=== PATIENT | female | born 1975 | race Caucasian/White ===

== ENCOUNTER → 2019-12-14 | Outpatient (CLI) | payer OTHER | LOC: WI 11:13 | PROVIDERS: ATTEND Family Medicine | DX: Z12.31 Encounter for screening mammogram for malignant neoplasm of breast (principal) | CPT/HCPCS: 77067 ==

== ENCOUNTER → 2020-01-10 | Outpatient (CLI) | payer OTHER ==
--- NOTE | 2020-01-10 16:59 | WOMENS IMAGING REPORT ---
EXAM DESCRIPTION: BILAT DIAGNOSTIC MAMMO W/CAD; U/S BREAST UNILAT LIMITED COMPLETED DATE/TIME: 01/10/2020 12:25 pm; 01/10/2020 2:12 pm REASON FOR STUDY: R92.8 BILATERAL DIAGNOSTIC MAMMOGRAM; LT BREAST R92.2 INCONCLUSIVE MAMMOGRAM. Ca llback from screening mammogram for asymmetry right breast and a small mass in the left breast. COMPARISON: Screening mammogram 12/14/2019. EXAM PARAMETERS: Standard craniocaudal and mediolateral oblique views of each breast recorded using digital acquisition. Spot-compression images of both the right and left breast in CC and MLO views were obtained. Read with the assistance of CAD: .[employer] Version 9.2 LIMITATIONS: None. FINDINGS: RIGHT BREAST MASSES: No suspicious masses. CALCIFICATIONS: No new or suspicious calcifications. ARCHITECTURAL DISTORTION: None. ASYMMETRY: With repeat imaging and spot compression the previously described asymmetry is no longer v isible. This is consistent with benign superimposed breast tissue. OTHER: No other significant findings. LEFT BREAST MASSES: The small mass measuring approximately 9 mm in the left upper outer breast persists with spot compression. CALCIFICATIONS: No new or suspicious calcifications. ARCHITECTURAL DISTORTION: None. ASYMMETRY: None noted. OTHER: No other significant finding. The patient was taken ultrasound for further evaluation of the left breast. The left breast was scan marilu from the 1 to 2 o'clock position September 2012 cm from the nipple. There is a benign intramammar y lymph node measuring 1.2 x 0.9 x 0.6 cm. This has normal architecture, normal fatty hilum, and nor mal vascularity. There is no other mass, area of echogenic shadowing, skin thickening, or other abno rmality in the upper outer left breast. IMPRESSION: 1. Benign superimposed breast tissue in the right breast. 2. Benign intramammary lymph node in the left breast. 3. No mammographic or sonographic evidence of malignancy. Recommend annual routine screening mammogr aphy for which the patient will be due in November 2020. BREAST DENSITY: b. There are scattered areas of fibroglandular density. BIRAD: ASSESSMENT: 2 Benign findings. RECOMMENDATION: RECOMMENDED FOLLOW UP: Birads 1 or 2: The patient should resume routine screening . SPECIFIC INTERVENTION/IMAGING/CONSULTATION RECOMMENDED:No additional intervention/ imaging/consultati on needed at this time. COMMUNICATION:The imaging findings were not discussed with the patient. Her referring provider has be en notified of the findings. COMMENT: The patient has been notified of the results by letter per [place] requirements. Additional no tification policies are in place for contacting patient with suspicious or incomplete findings. Quality ID #[id number]: The [employer] recommends an annual screening mammogram for women aged 40 years or over. This facility utilizes a reminder system to ensure that all patients receive reminder letters, and/or direct phone calls for appointments. This includes reminders for routine scr eening mammograms, diagnostic mammograms, or other Breast Imaging Interventions when appropriate. Th is patient will be placed in the appropriate reminder system. TECHNICAL DOCUMENTATION: FINDING NUMBER: (1) ASSESSMENT: (1) JOB ID: [id number] 2010 [email or web address]- All Rights Reserved Reading location - IP/workstation name: [email or web address]
== END ==
LOC: WI 13:05
PROVIDERS: ATTEND Family Medicine
DX: R92.8 Other abnormal and inconclusive findings on diagnostic imaging of breast (principal)
CPT/HCPCS: 76642; 77066